=== PATIENT | female | born 1980 | race Caucasian/White ===

== ENCOUNTER 2017-05-20 13:22 | Emergency (ER) | payer MEDICAID ==
[~2017-05-20] VITALS: Ht 154.9 cm; Wt 61.3 kg
[~2017-05-20 13:22] MED LIST: CLIN-79 PO; DICL100G15 TOP; GUAI120015 PO; IBUP-1574 PO; IBUP-814 PO; NAPR-56 PO; NO HOME MEDS
[2017-05-20] MEDS ORDERED: ACET-3067 PO (14:21)
[2017-05-20] MEDS ORDERED: acetaminophen w/codeine (60MG) #4 tablet PO ONE (14:55)
[2017-05-20] MEDS ORDERED: acetaminophen w/codeine (30MG) #3 tablet PO ONE (15:05)
[2017-05-20 15:20] VITALS: BP 122/72
== END 2017-05-20 15:10 | disposition home or self-care (01) ==
LOC: ER 13:23
DX: M54.5 Low back pain (principal); G89.29 Other chronic pain; J45.909 Unspecified asthma, uncomplicated; I49.9 Cardiac arrhythmia, unspecified; Z56.0 Unemployment, unspecified; Z98.890 Other specified postprocedural states; Z88.1 Allergy status to other antibiotic agents; Z88.8 Allergy status to other drugs, medicaments and biological substances; Z79.899 Other long term (current) drug therapy
CPT/HCPCS: 72100; 99284

== ENCOUNTER 2017-06-11 12:09 | Emergency (ER) | payer MEDICAID ==
[~2017-06-11] VITALS: Ht 154.9 cm; Wt 61.0 kg
[2017-06-11 12:12] VITALS: BP 131/59
[2017-06-11] MEDS ORDERED: HYDROcodone/acetaminophen 5mg/325mg tablet PO ONE (13:00)
[2017-06-11] MEDS ORDERED: orphenadrine citrate 60mg/2ml inj. IM ONE (13:00)
[2017-06-11] MEDS ORDERED: acetaminophen 325mg tablet PO ONE (13:00)
[2017-06-11] MEDS ORDERED: ketorolac trometh inj. 60 MG/2 ML VIAL IM ONE (13:00)
[2017-06-11] MEDS ORDERED: CYCL-1 PO (13:35)
== END 2017-06-11 13:48 | disposition home or self-care (01) ==
LOC: ER 12:09
DX: S39.012A Strain of muscle, fascia and tendon of lower back, initial encounter (principal); S16.1XXA Strain of muscle, fascia and tendon at neck level, initial encounter; F17.210 Nicotine dependence, cigarettes, uncomplicated; Z88.1 Allergy status to other antibiotic agents; Z88.8 Allergy status to other drugs, medicaments and biological substances; X50.0XXA Overexertion from strenuous movement or load, initial encounter; Y93.89 Activity, other specified; Y92.89 Other specified places as the place of occurrence of the external cause; Y99.8 Other external cause status
CPT/HCPCS: 96372; 99284; J1885; J2360

== ENCOUNTER 2017-07-06 07:09 | Emergency (ER) | payer MEDICAID ==
[~2017-07-06] VITALS: Ht 154.9 cm; Wt 60.4 kg
[~2017-07-06 07:09] MED LIST changes: +CYCL-1 PO
[2017-07-06 07:57] LABS: CLARITY,URINE SLIGHTLY CLOUDY (Clear); COLOR,URINE YELLOW (Yellow); GLUCOSE, URINE NEGATIVE (Neg); KETONES,URINE NEGATIVE (Neg); LEUKOCYTE ESTERASE ,URINE NEGATIVE (Neg); NITRITES, URINE NEGATIVE (Neg); OCCULT BLOOD,URINE NEGATIVE (Neg); PH,URINE 7.5 (4.8-8.0); PROTEIN,URINE NEGATIVE (Neg); UROBILINOGEN,URINE 0.2 E.U/dL (0.2-1.0)
[2017-07-06 07:58] LABS: UA COLLECTION TYPE CLN CATCH MIDSTREAM
[2017-07-06 07:59] LABS: URINE HCG NEGATIVE (NEG)
[2017-07-06 08:08] LABS: BACTERIA,URINE 1+ /HPF (Neg); MUCUS STRANDS MODERATE /LPF (Neg); RBC,URINE 0-2 /HPF (0-2); SQUAMOUS EPITHELIAL CELL,UR MANY /LPF (FEW); WBC,URINE 0-4 /HPF (0-4)
[2017-07-06 08:18] LABS: BASOPHILS % (AUTO) 0.2 % (0-1); EOSINOPHILS % (AUTO) 0.3 % (0-6); HEMATOCRIT 37.6 % (35.0-45.0); HEMOGLOBIN 12.8 g/dl (12.0-16.0); LYMPHOCYTES # (AUTO) 0.6 X10'3 (1.1-4.8); LYMPHOCYTES % (AUTO) 9.2 % (21-51); MEAN CORPUSCULAR HEMOGLOBIN 28.9 PG (27.0-31.0); MEAN CORPUSCULAR HGB CONC 34.1 % (33.0-36.5); MEAN CORPUSCULAR VOLUME 84.8 FL (78-98); MEAN PLATELET VOLUME 10.6 FL (7.4-10.4); MONOCYTES # (AUTO) 0.2 X10'3 (0-0.9); MONOCYTES % (AUTO) 3.4 % (2-12); NEUTROPHILS # (AUTO) 5.9 X10'3 (1.8-7.7); NEUTROPHILS % (AUTO) 86.9 % (42-75); PLATELET COUNT 180 X10'3 (140-440); RED BLOOD COUNT 4.43 X10'6 (4.20-5.60); RED CELL DISTRIBUTION WIDTH 16.3 % (11.5-14.5); WHITE BLOOD COUNT 6.8 X10'3 (4.5-11.0)
[2017-07-06 08:34] LABS: ALANINE AMINOTRANSFERASE 21 U/L (12-78); ALBUMIN 3.5 G/DL (3.4-5.0); ALKALINE PHOSPHATASE 66 IU/L (46-116); ANION GAP 11 (8-16); ASPARTATE AMINO TRANSFERASE 17 U/L (10-37); BILIRUBIN,TOTAL 0.7 MG/DL (0.1-1.0); BLOOD UREA NITROGEN 20 MG/DL (7-18); BUN/CREATININE RATIO 28.6 (6.6-38.0); CALCIUM 8.1 MG/DL (8.5-10.1); CHLORIDE 106 MMOL/L (99-107); GLUCOSE 94 MG/DL (70-104); LIPASE 165 U/L (73-393); POTASSIUM 3.7 MMOL/L (3.5-5.1); SODIUM 140 MMOL/L (135-145); TOTAL CARBON DIOXIDE 23.1 MMOL/L (24-32); TOTAL PROTEIN 6.9 G/DL (6.4-8.2); eGFR > 90 ML/MIN
[2017-07-06 08:36] LABS: LARGE PLATELETS FEW; PLATELET ESTIMATE NORMAL
[2017-07-06] MEDS ORDERED: ketorolac trometh. 30mg/ml inj. IV ONE (08:50)
[2017-07-06] MEDS ORDERED: normal saline 1000ML IV soln IVB ONE (08:50)
[2017-07-06] MEDS ORDERED: famotidine/PF 10 mg/ml inj IV ONE (08:50)
[2017-07-06] MEDS ORDERED: ondansetron/PF 4mg/2ml inj IV ONE (08:50)
[2017-07-06 10:06] VITALS: BP 129/75
== END 2017-07-06 10:10 | disposition home or self-care (01) ==
LOC: ER 07:09
DX: R10.12 Left upper quadrant pain (principal); R19.7 Diarrhea, unspecified; R11.10 Vomiting, unspecified; G89.29 Other chronic pain; J45.909 Unspecified asthma, uncomplicated; Z88.1 Allergy status to other antibiotic agents; Z88.8 Allergy status to other drugs, medicaments and biological substances; Z98.890 Other specified postprocedural states; Z90.89 Acquired absence of other organs; Z56.0 Unemployment, unspecified
CPT/HCPCS: 36415; 80053; 81001; 81025; 83690; 85025; 96374; 96375; 99284; J1885; J2405; J3490; J7030

== ENCOUNTER 2017-07-24 11:59 | Emergency (ER) | payer MEDICAID ==
[~2017-07-24] VITALS: Ht 154.9 cm; Wt 61.5 kg
[2017-07-24] MEDS ORDERED: [UNRECOGNIZED DRUG - OTHER] (12:54)
[2017-07-24] MEDS ORDERED: BUSP5TAB3 PO (12:55)
[2017-07-24] MEDS ORDERED: IBUP-1984 PO (13:04)
[2017-07-24] MEDS: ketorolac trometh inj. 60 MG/2 ML VIAL IM ONE (13:10)
[2017-07-24 13:22] VITALS: BP 126/84
== END 2017-07-24 13:24 | disposition home or self-care (01) ==
LOC: ER 12:00
DX: M54.5 Low back pain (principal); G89.29 Other chronic pain; J45.909 Unspecified asthma, uncomplicated; I49.9 Cardiac arrhythmia, unspecified; Z98.890 Other specified postprocedural states; Z56.0 Unemployment, unspecified; Z88.1 Allergy status to other antibiotic agents; Z88.8 Allergy status to other drugs, medicaments and biological substances; Z79.899 Other long term (current) drug therapy
CPT/HCPCS: 96372; 99283; J1885

== ENCOUNTER 2017-08-22 11:41 | Emergency (ER) | payer MEDICAID ==
[~2017-08-22] VITALS: Ht 154.9 cm; Wt 61.0 kg
[~2017-08-22 11:41] MED LIST changes: +BUSP5TAB3 PO; -CLIN-79 PO; -CYCL-1 PO; -DICL100G15 TOP; -GUAI120015 PO; -IBUP-1574 PO; +IBUP-1984 PO; -NAPR-56 PO; -NO HOME MEDS; +[UNRECOGNIZED DRUG - OTHER]
[2017-08-22 11:57] VITALS: BP 114/77
[2017-08-22] MEDS ORDERED: HYDROcodone/acetaminophen 5mg/325mg tablet PO ONE (12:25)
[2017-08-22] MEDS ORDERED: HYDR-565 PO (12:30)
[2017-08-22] MEDS ORDERED: PENI500T2 PO (12:30)
== END 2017-08-22 12:46 | disposition home or self-care (01) ==
LOC: ER 11:42
DX: K04.7 Periapical abscess without sinus (principal); J45.909 Unspecified asthma, uncomplicated; G89.29 Other chronic pain; Z98.890 Other specified postprocedural states; Z56.0 Unemployment, unspecified; Z88.8 Allergy status to other drugs, medicaments and biological substances; Z79.899 Other long term (current) drug therapy
CPT/HCPCS: 99283

== ENCOUNTER 2017-09-27 06:33 | Emergency (ER) | payer MEDICAID ==
[~2017-09-27] VITALS: Ht 154.9 cm; Wt 62.1 kg
[~2017-09-27 06:33] MED LIST changes: -IBUP-1984 PO; +PENI500T2 PO
[2017-09-27 06:35] VITALS: BP 112/72
[2017-09-27] MEDS ORDERED: ketorolac trometh inj. 60 MG/2 ML VIAL IM ONE (06:55)
[2017-09-27] MEDS ORDERED: LIDOcaine 5% patch TP ONE (06:55)
[2017-09-27] MEDS ORDERED: acetaminophen 325mg tablet PO ONE (06:55)
[2017-09-27 07:13] LABS: URINE HCG NEGATIVE (NEG)
[2017-09-27 07:18] LABS: CLARITY,URINE CLOUDY (Clear); COLOR,URINE YELLOW (Yellow); GLUCOSE, URINE NEGATIVE (Neg); KETONES,URINE NEGATIVE (Neg); LEUKOCYTE ESTERASE ,URINE TRACE (Neg); NITRITES, URINE NEGATIVE (Neg); OCCULT BLOOD,URINE NEGATIVE (Neg); PH,URINE 5.5 (4.8-8.0); PROTEIN,URINE NEGATIVE (Neg); UROBILINOGEN,URINE 0.2 E.U/dL (0.2-1.0)
[2017-09-27 07:25] LABS: UA COLLECTION TYPE CLN CATCH MIDSTREAM
[2017-09-27 07:28] LABS: BACTERIA,URINE 1+ /HPF (Neg); MUCUS STRANDS FEW /LPF (Neg); RBC,URINE NONE SEEN /HPF (0-2)
[2017-09-27 07:30] LABS: SQUAMOUS EPITHELIAL CELL,UR MANY /LPF (FEW)
[2017-09-27] MEDS ORDERED: LIDO700A32 TP (07:38)
[2017-09-27 07:47] LABS: URINE AMPHETAMINE SCREEN NEGATIVE (Neg); URINE BARBITUATE SCREEN NEGATIVE (Neg); URINE BENZODIAZEPINES SCREEN NEGATIVE (Neg); URINE CANNABINOID SCREEN NEGATIVE (Neg); URINE COCAINE SCREEN NEGATIVE (Neg); URINE METHADONE SCREEN NEGATIVE (Neg); URINE OPIATE SCREEN NEGATIVE (Neg); URINE PHENCYCLIDINE SCREEN NEGATIVE (Neg)
== END 2017-09-27 07:49 | disposition home or self-care (01) ==
LOC: ER 06:33
DX: M54.9 Dorsalgia, unspecified (principal); I49.9 Cardiac arrhythmia, unspecified; J45.909 Unspecified asthma, uncomplicated; G89.29 Other chronic pain; F17.200 Nicotine dependence, unspecified, uncomplicated; Z98.890 Other specified postprocedural states; Z56.0 Unemployment, unspecified; Z88.1 Allergy status to other antibiotic agents; Z88.6 Allergy status to analgesic agent; Z79.899 Other long term (current) drug therapy
CPT/HCPCS: 80305; 81001; 81025; 96372; 99284; J1885

== ENCOUNTER 2017-11-18 17:48 | Emergency (ER) | payer MEDICAID ==
[~2017-11-18] VITALS: Ht 154.9 cm; Wt 63.2 kg
[~2017-11-18 17:48] MED LIST changes: +LIDO700A32 TP; -PENI500T2 PO
[2017-11-18 17:58] VITALS: BP 134/89
[2017-11-18] MEDS ORDERED: ibuprofen tablet 400 MG TABLET PO ONE (18:00)
[2017-11-18] MEDS ORDERED: CEPH500C5 PO (18:03)
[2017-11-18] MEDS ORDERED: IBUP-1984 PO (18:03)
== END 2017-11-18 18:13 | disposition home or self-care (01) ==
LOC: ER 17:48
DX: K08.89 Other specified disorders of teeth and supporting structures (principal); J45.909 Unspecified asthma, uncomplicated; G89.29 Other chronic pain; Z56.0 Unemployment, unspecified; Z98.890 Other specified postprocedural states; Z90.89 Acquired absence of other organs; Z79.899 Other long term (current) drug therapy; Z88.1 Allergy status to other antibiotic agents
CPT/HCPCS: 99283

== ENCOUNTER 2017-12-27 11:17 | Emergency (ER) | payer MEDICAID ==
[~2017-12-27] VITALS: Ht 154.9 cm; Wt 63.6 kg
[~2017-12-27 11:17] MED LIST changes: +CEPH500C5 PO
[2017-12-27 11:51] LABS: BASOPHILS % (AUTO) 0.2 % (0-1); EOSINOPHILS % (AUTO) 0.4 % (0-6); HEMOGLOBIN 12.1 g/dl (12.0-16.0); LYMPHOCYTES # (AUTO) 0.9 X10'3 (1.1-4.8); LYMPHOCYTES % (AUTO) 8.7 % (21-51); MEAN CORPUSCULAR HEMOGLOBIN 29.1 PG (27.0-31.0); MEAN CORPUSCULAR HGB CONC 33.6 % (33.0-36.5); MEAN CORPUSCULAR VOLUME 86.4 FL (78-98); MONOCYTES # (AUTO) 0.4 X10'3 (0-0.9); MONOCYTES % (AUTO) 3.9 % (2-12); NEUTROPHILS # (AUTO) 8.6 X10'3 (1.8-7.7); NEUTROPHILS % (AUTO) 86.8 % (42-75); PLATELET COUNT 169 X10'3 (140-440); RED BLOOD COUNT 4.17 X10'6 (4.20-5.60); RED CELL DISTRIBUTION WIDTH 15.5 % (11.5-14.5); WHITE BLOOD COUNT 9.9 X10'3 (4.5-11.0)
[2017-12-27 11:55] LABS: URINE HCG NEGATIVE (NEG)
[2017-12-27 11:58] LABS: CLARITY,URINE CLOUDY (Clear); COLOR,URINE YELLOW (Yellow); GLUCOSE, URINE NEGATIVE (Neg); KETONES,URINE NEGATIVE (Neg); LEUKOCYTE ESTERASE ,URINE MODERATE (Neg); NITRITES, URINE POSITIVE (Neg); OCCULT BLOOD,URINE LARGE (Neg); PH,URINE 5.5 (4.8-8.0); PROTEIN,URINE 30 mg/dl (Neg); UA COLLECTION TYPE CLN CATCH MIDSTREAM; UROBILINOGEN,URINE 0.2 E.U/dL (0.2-1.0)
[2017-12-27 12:08] LABS: ALANINE AMINOTRANSFERASE 20 U/L (12-78); ALBUMIN 3.3 G/DL (3.4-5.0); ALBUMIN/GLOBULIN RATIO 0.9 (1.1-1.5); ALKALINE PHOSPHATASE 88 IU/L (46-116); ANION GAP 12 (8-16); ASPARTATE AMINO TRANSFERASE 19 U/L (10-37); BILIRUBIN,TOTAL 0.8 MG/DL (0.1-1.0); BLOOD UREA NITROGEN 14 MG/DL (7-18); BUN/CREATININE RATIO 15.6 (6.6-38.0); CALCIUM 9.5 MG/DL (8.5-10.1); CHLORIDE 104 MMOL/L (99-107); GLUCOSE 166 MG/DL (70-104); LIPASE 948 U/L (73-393); POTASSIUM 3.3 MMOL/L (3.5-5.1); SODIUM 138 MMOL/L (135-145); TOTAL CARBON DIOXIDE 21.9 MMOL/L (24-32); TOTAL PROTEIN 6.8 G/DL (6.4-8.2); eGFR 70 ML/MIN
[2017-12-27 12:18] LABS: BACTERIA,URINE 1+ /HPF (Neg); MUCUS STRANDS FEW /LPF (Neg); SQUAMOUS EPITHELIAL CELL,UR MANY /LPF (FEW); WBC CLUMPS,URINE FEW /HPF (NEGATIVE); WBC,URINE TNTC /HPF (0-4)
[2017-12-27] MEDS ORDERED: CefTRIAXone/D5W-Rocephin 1gm 50 ML IV ONE (12:35)
[2017-12-27] MEDS ORDERED: ketorolac tromethamine 15mg/ml inj. IV ONE (12:35)
[2017-12-27] MEDS ORDERED: CEPH500C5 PO (12:42)
[2017-12-27 13:41] VITALS: BP 110/64
== END 2017-12-27 13:43 | disposition home or self-care (01) ==
LOC: ER 11:18
DX: N10 Acute pyelonephritis (principal); G89.29 Other chronic pain; J45.909 Unspecified asthma, uncomplicated; F17.200 Nicotine dependence, unspecified, uncomplicated; Z88.1 Allergy status to other antibiotic agents; Z88.8 Allergy status to other drugs, medicaments and biological substances; Z79.899 Other long term (current) drug therapy; Z90.89 Acquired absence of other organs; Z98.890 Other specified postprocedural states; Z56.0 Unemployment, unspecified
CPT/HCPCS: 36415; 80053; 81001; 81025; 83690; 85025; 85610; 96365; 96375; 99284; J0696; J1885; J7030

== ENCOUNTER 2018-05-27 10:15 | Emergency (ER) | payer MEDICAID ==
[~2018-05-27] VITALS: Ht 154.9 cm; Wt 63.6 kg
[~2018-05-27 10:15] MED LIST changes: -IBUP-814 PO; -LIDO700A32 TP; -[UNRECOGNIZED DRUG - OTHER]
[2018-05-27 10:25] VITALS: BP 113/72
[2018-05-27] MEDS ORDERED: PENI500T2 PO (10:52)
[2018-05-27] MEDS ORDERED: ACET-3068 PO (10:52)
== END 2018-05-27 11:00 | disposition home or self-care (01) ==
LOC: ER 10:16
DX: K04.7 Periapical abscess without sinus (principal); J45.909 Unspecified asthma, uncomplicated; G89.29 Other chronic pain; F17.200 Nicotine dependence, unspecified, uncomplicated; Z98.890 Other specified postprocedural states; Z56.0 Unemployment, unspecified; Z88.1 Allergy status to other antibiotic agents; Z91.041 Radiographic dye allergy status; Z79.2 Long term (current) use of antibiotics; Z79.899 Other long term (current) drug therapy
CPT/HCPCS: 99283

== ENCOUNTER 2020-05-26 09:50 | Emergency (ER) | payer MEDICAID ==
[~2020-05-26] VITALS: Ht 154.9 cm; Wt 55.2 kg
[~2020-05-26 09:50] MED LIST changes: -CEPH500C5 PO
[2020-05-26 10:32] VITALS: BP 108/60
[2020-05-26] MEDS ORDERED: ketorolac tromethamine 15mg/ml inj. IM ONE (11:05)
[2020-05-26] MEDS ORDERED: ketorolac trometh. 30mg/ml inj. IM ONE (11:10)
== END 2020-05-26 10:55 | disposition home or self-care (01) ==
LOC: ER 09:52
DX: M25.562 Pain in left knee (principal); M25.462 Effusion, left knee; J45.909 Unspecified asthma, uncomplicated; G89.29 Other chronic pain; Z98.890 Other specified postprocedural states; Z90.89 Acquired absence of other organs; Z72.89 Other problems related to lifestyle; Z56.0 Unemployment, unspecified; Z88.1 Allergy status to other antibiotic agents; Z88.8 Allergy status to other drugs, medicaments and biological substances; Z79.899 Other long term (current) drug therapy
CPT/HCPCS: 73564; 96372; 99283; J1885

== ENCOUNTER 2020-12-22 13:09 | Emergency (ER) | payer MEDICAID ==
[~2020-12-22] VITALS: Ht 154.9 cm; Wt 50.0 kg
[2020-12-22 13:37] VITALS: BP 100/73
== END 2020-12-22 20:25 | disposition left against medical advice (07) ==
LOC: ER 13:10
DX: K08.89 Other specified disorders of teeth and supporting structures (principal); Z53.21 Procedure and treatment not carried out due to patient leaving prior to being seen by health care provider

== ENCOUNTER 2021-02-15 16:08 | Emergency (ER) | payer MEDICAID ==
[~2021-02-15] VITALS: Ht 154.9 cm; Wt 50.0 kg
[2021-02-15 16:11] VITALS: BP 140/89
[2021-02-15] MEDS ORDERED: PENI250T2 PO (16:16)
[2021-02-15] MEDS ORDERED: NAPR-56 PO (16:16)
== END 2021-02-15 17:19 | disposition home or self-care (01) ==
LOC: ER 16:08
DX: K04.7 Periapical abscess without sinus (principal); K08.89 Other specified disorders of teeth and supporting structures; J45.909 Unspecified asthma, uncomplicated; G89.29 Other chronic pain; Z98.890 Other specified postprocedural states; Z90.89 Acquired absence of other organs; Z72.89 Other problems related to lifestyle; Z56.0 Unemployment, unspecified; Z88.1 Allergy status to other antibiotic agents; Z88.8 Allergy status to other drugs, medicaments and biological substances; Z79.2 Long term (current) use of antibiotics; Z79.899 Other long term (current) drug therapy
CPT/HCPCS: 99283

== ENCOUNTER 2021-03-10 11:48 | Emergency (ER) | payer MEDICAID ==
[~2021-03-10] VITALS: Ht 154.9 cm; Wt 50.0 kg
[~2021-03-10 11:48] MED LIST changes: +NAPR-56 PO
[2021-03-10 12:21] VITALS: BP 122/67
[2021-03-10] MEDS ORDERED: HYDR-3972 PO (13:25)
== END 2021-03-10 13:50 | disposition home or self-care (01) ==
LOC: ER 11:49
DX: K02.9 Dental caries, unspecified (principal); K08.89 Other specified disorders of teeth and supporting structures; R11.10 Vomiting, unspecified; J45.909 Unspecified asthma, uncomplicated; G89.29 Other chronic pain; Z98.890 Other specified postprocedural states; Z90.89 Acquired absence of other organs; Z72.89 Other problems related to lifestyle; Z56.0 Unemployment, unspecified; Z88.1 Allergy status to other antibiotic agents; Z88.8 Allergy status to other drugs, medicaments and biological substances; Z79.899 Other long term (current) drug therapy
CPT/HCPCS: 99283

== ENCOUNTER 2025-01-05 09:18 | Emergency (ER) | payer MEDICAID ==
[~2025-01-05] VITALS: Ht 154.9 cm; Wt 54.0 kg
[~2025-01-05 09:18] MED LIST changes: -NAPR-56 PO
[2025-01-05 09:22] VITALS: BP 152/97; PULSE 77; RESP 18; TEMP 97.5; O2SAT 99
--- NOTE | 2025-01-05 09:40 | Physician Documentation ---
History of Present Illness ~ Chief Complaint: Medical Clearance Stated Complaint: MED CLEARANCE Time Seen by MD: 09:36 Primary Medical Doctor: Deyanira [facility] HPI 44-year-old female presents to the ED with a complaint of alcohol abuse. He is she would like to go to [facility] for recovery. States her last drink was yesterday. Has a she has never had any severe withdrawals or seizures Tetanus within 5 years?: Yes Medication Reconciliation Allergies: Coded Allergies: erythromycin base (Verified Allergy, Intermediate, 01/05/25) iodine (Verified Allergy, Unknown, 01/05/25) Uncoded Allergies: SHELLFISH (Allergy, Severe, anaphylactic, 04/24/16) Scheduled Buspirone Hcl* (Buspar*), 3 TAB PO Q12H, (Reported) Past Medical History Past Medical History: Arrhythmia, Asthma, Pancreatitis, Chronic Back Pain, Extremity Fracture, *PSYCH* Past Surgical History: , orthopedic surgeries, tonsillectomy, other Alcohol Use: Sober Drug Use: none Lives with: Other Lives In: Home Occupation: unemployed, disabled Review of Systems All Other Systems at this time: Reviewed and Negative ROS As stated above in the HPI, otherwise all systems are reviewed and negative. Physical Exam Vital Signs: Temperature: 97.5, Source: Temporal, Heart Rate: 77, Respiratory Rate: 18, BP: 152/97, Pulse Oximetry: 99, Weight: 54.000 Oxygen Flow Rate: 0 Physical Exam General: Alert, no apparent distress. Respiratory: Lungs clear, no respiratory distress. Cardiovascular: Regular rate and rhythm, no murmurs. Neurologic: Oriented x4. Psychiatric: Normal mood and affect. Skin: Normal color, warm and dry. No edema, no ecchymosis. Progress Results/Orders Results/Orders Vital Signs 01/05/25 09:22 Temp 97.5 Pulse 77 Resp 18 B/P (MAP) 152/97 Pulse Ox 99 O2 Flow Rate 0 Medical Decision Making Findings Medically cleared for alcohol recovery. See any reason to pursue any further evaluation vitals are reassuring and patient's presentation is appropriate Differential Dx:Considerations: Include: Intoxication-Alcohol, Intoxication- Other drug, Personality disorder, Substance abuse disorder, Acute delirium, Closed head injury, Cervical spine injury, Skull fracture, Fracture(s), Ab rasion, Contusion, Foreign body, Hematoma, Laceration, Alcohol withdrawl syndrom, Encephalopathy, Hepatitis, Medically stable, Other Departure Disposition: HOME / SELF CARE / HOMELESS Impression: Primary Impression: General medical exam Condition: Stable Discharge Instructions: Medical Screening Exam Additional Instructions: Medically cleared cleared for alcohol recovery program Referrals: NO PRIMARY CARE PROVIDER (PCP) Prescriptions Chlordiazepoxide Hcl (Librium) 25 Mg Capsule 25 MG PO TID for alcohol withdrawl for 5 Days, #15 CAP 0 Refills Prov: FLAVIO SOLANO NP 01/05/25 Education Educated: Patient Educated regarding: diagnosis Signature Scribe Signature: g Attestation: Scribed for Flavio Solano Rare/Endangered Species Specialist by Flavio Justice NP . 01/05/25 09:53 FLAVIO SOLANO NP Jan 05, 2025 09:40
[2025-01-05] MEDS ORDERED: CHLO25CA10 PO (09:52)
== END 2025-01-05 10:09 | disposition home or self-care (01) ==
LOC: ER 09:18
DX: F10.10 Alcohol abuse, uncomplicated (principal); J45.909 Unspecified asthma, uncomplicated; G89.29 Other chronic pain; Z88.1 Allergy status to other antibiotic agents; Z87.19 Personal history of other diseases of the digestive system; Z79.899 Other long term (current) drug therapy; Z56.0 Unemployment, unspecified
CPT/HCPCS: 99283

== ENCOUNTER 2025-04-08 07:39 | Emergency (ER) | payer MEDICAID ==
[~2025-04-08] VITALS: Ht 154.9 cm; Wt 56.3 kg
[~2025-04-08 07:39] MED LIST changes: +CHLO25CA10 PO
[2025-04-08 07:43] VITALS: TEMP 98.4
--- NOTE | 2025-04-08 08:28 | ELECTROCARDIOGRAPH REPORT ---
[facility] Test Date: 2025-04-08 Test Time: 08:25:42 Pat Name: KHALIF ZURITA Department: [facility]- Patient ID: [facility]-[id number] Room: Gender: F Food Service Counter Clerk: : 1980 Requested By: ARMANDO BACH Order Number: [id number] Reading MD: Dr. ALBIN Ahumada Measurements Intervals [place] Rate: 70 P: 75 MA: 150 QRS: 71 QRSD: 84 T: 51 QT: 407 QTc: 440 Interpretive Statements Sinus rhythm Probable left atrial enlargement Low voltage, precordial leads RSR' in V1 or V2, probably normal variant Electronically Signed On 04-09-2025 16:52:[address] ALBIN Ahumada Please click the below link to view image of tracing.
--- NOTE | 2025-04-08 08:28 | Physician Documentation ---
History of Present Illness General Chief Complaint: Flu Symptoms Stated Complaint: FLU SYMPTOMS Time Seen by MD: 07:58 [facility] Present [facility]ness Initial Comments This is a 45-year-old female with a history of ongoing smoking, known history of COPD, presents for evaluation of shortness a breath, wheezing, cough productive with a yellow sputum, subjective fevers, chills, body aches and other flu-like symptoms that has been present for the last three days. No known infectious exposure. No particular palliating or aggravating factors. The shortness a breath does not feel exertional. She has a attempted to treat it with the albuterol at home with the only moderate success. She finally had enough and presented to our emergency department. She denies any chest pain. Denies any nausea, vomiting, diarrhea, abdominal pain. Denies any chance of being . She does not drink, does not do drugs. Medication Reconciliation Allergies: Coded Allergies: erythromycin base (Verified Allergy, Intermediate, 04/08/25) iodine (Verified Allergy, Unknown, 04/08/25) Uncoded Allergies: SHELLFISH (Allergy, Severe, anaphylactic, 04/24/16) Scheduled Benzonatate* (Benzonatate*), 1 CAP PO Q8H Buspirone Hcl* (Buspar*), 3 TAB PO Q12H, (Reported) Chlordiazepoxide Hcl (Librium), 25 MG PO TID Prednisone (Prednisone), 0 PO DAILY Past Medical History Past Medical History: Arrhythmia, Asthma, Pancreatitis, Chronic Back Pain, Extremity Fracture, *PSYCH* Past Surgical History: , orthopedic surgeries, tonsillectomy, other Smoking: Cigarettes, Greater than 1 pack/day Alcohol Use: Sober Drug Use: none Lives with: Other Lives In: Home Occupation: unemployed, disabled Review of Systems ROS 10 point review of systems was performed and unless noted above in HPI is negative for acute process/complaint. Physical Exam Physical Exam Vital Signs: Temperature: 98.4, Source: Oral, Heart Rate: 89, Respiratory Rate: 18, BP: 109/35, Pulse Oximetry: 98, Weight: 56.300 Oxygen Flow Rate: 0 Physical Exam GENERAL: Awake, alert, oriented, GCS 15, no apparent distress, non-toxic appearing, answers questions, follows commands appropriately. Examined in bed 12 HEENT: Atraumatic, normocephalic, pupils equal, extraocular muscles intact, sclerae anicteric, mucus membranes moist, oropharynx is clear, no stridor. NECK: supple, full active range of motion, trachea midline, no thyromegaly, no lymphadenopathy, no JVD. CARDIOVASCULAR: regular rate/rhythm, no murmurs/gallops/rubs, Pulses are 2+ in all extremities and symmetric. Capillary refill less than 2 seconds. PULMONARY: Nonlabored, slightly decreased air movement ,no respiratory distress, speaking in full sentences, bilateral expiratory wheezing, no ronchi, no rales, no accessory muscle use. GASTROINTESTINAL: Soft, non-tender, non-distended, normal active bowel sounds, no organomegaly, no pulsatile masses, no CVA tenderness. NEUROLOGIC: Lucid with normal mental status. Normal facial symmetry. Moves all extremities symmetrically and with purpose. No truncal ataxia. Speech is fluid without evidence of dysarthria or aphasia, no focal deficits appreciated. MUSCULOSKELETAL: There is full range of motion of all extremities. There is no joint pain or joint swelling or joint erythema. There is no muscle pain or tenderness or swelling. EXTREMITIES: warm, well-perfused, no cyanosis, no clubbing, no edema, no acute deformities. Skin: warm, dry, no rashes or lesions, no jaundice, no petechiae orpurpura. No ecchymosis. PSYCHIATRIC: Normal affect, normal insight, normal concentration. Focused exam: [] Progress Results/Orders Results/Orders Orders - ARMANDO BACH DO Covid19 Binax Poc Result Entry (04/08/25 07:49) Chest,Two Views (04/08/25 08:16) * Rt Notification Q1H (04/08/25 10:18) Completed Orders - ARMANDO BACH DO Influenza Type A&B Rapid Test (04/08/25 07:49) Chest,Two Views (04/08/25 08:16) Electrocardiogram (04/08/25 08:16) Cbc/Diff (04/08/25 08:16) ESR (04/08/25 08:16) C-Reactive Protein (04/08/25 08:16) Hs Troponin I W Calculations (04/08/25 08:16) CMP (04/08/25 08:16) Ipratropium/Albuterol Nebule (Ipratrop/A (04/08/25 08:20) Prednisone Tablet (Prednisone Tablet) (04/08/25 08:20) Albuterol 2.5mg/3ml Nebule (Proventil 2. (04/08/25 10:20) Medications Received in ER Medications (Trade) Dose Ordered Sig/Kj Route PRN Reason Start Time Stop Time Status Last Admin Dose Admin (ipratrop/ albuterol 0.5-3(2.5) MG/3ml nebule) 3 ml ONCE ONCE NEB 04/08/25 08:20 04/08/25 08:25 DC 04/08/25 09:42 3 ML (predniSONE tablet) 60 mg ONCE ONCE PO 04/08/25 08:20 04/08/25 08:23 DC 04/08/25 08:28 60 MG Vital Signs 04/08/25 04/08/25 04/08/25 04/08/25 07:43 08:52 09:44 09:44 Temp 98.4 Pulse 89 74 70 Resp 18 16 18 20 B/P (MAP) 109/35 Pulse Ox 98 100 100 O2 Delivery Room Air* Room Air* O2 Flow Rate 0 0 0 FiO2 N/A N/A 04/08/25 11:10 Pulse 94 Resp 18 B/P (MAP) 109/47 (67) Pulse Ox 98 O2 Flow Rate 0 Laboratory Tests Test 04/08/25 07:47 04/08/25 08:39 Influenza Type A Antigen Negative Influenza Type B Antigen Negative SARS-CoV-2 Antigen (Rapid) Negative White Blood Count 5.7 Red Blood Count 4.20 Hemoglobin 13.2 Hematocrit 39.7 Mean Corpuscular Volume 94.6 Mean Corpuscular Hemoglobin 31.5 H Mean Corpuscular Hemoglobin Concent 33.3 Red Cell Distribution Width 13.1 Platelet Count 139 L Mean Platelet Volume 10.1 Neutrophils (%) (Auto) 68.3 Lymphocytes (%) (Auto) 21.0 Monocytes (%) (Auto) 9.5 Eosinophils (%) (Auto) 1.0 Basophils (%) (Auto) 0.2 Neutrophils # (Auto) 3.9 Lymphocytes # (Auto) 1.2 Monocytes # (Auto) 0.5 Eosinophils # (Auto) 0.1 Basophils # (Auto) 0.0 CBC Comment Erythrocyte Sedimentation Rate 4 Sodium Level 141 Potassium Level 3.8 Chloride Level 107 Carbon Dioxide Level 26.5 Anion Gap 8 Blood Urea Nitrogen 14 Creatinine 0.59 Estimated GFR/1.73 m2 > 90 BUN/Creatinine Ratio 23.7 H Glucose Level 109 H Calcium Level 8.1 L Total Bilirubin 0.3 Aspartate Amino Transf (AST/SGOT) 18 Alanine Aminotransferase (ALT/SGPT) 15 Alkaline Phosphatase 77 Troponin I High Sensitivity 4 C-Reactive Protein 0.81 H Total Protein 7.0 Albumin 3.7 Globulin 3.3 Albumin/Globulin Ratio 1.1 Chemistry Comments Medical Decision Making Additional information obtaine: old records Findings Facility Status: ED Holds, RME process The plan was discussed with the patient, who demonstrates clear understanding of the plan and is in agreement with the plan unless otherwise noted in the chart. All questions have been answered, all concerns were addressed unless otherwise documented. I was available throughout their ED stay for frequent reassessment and questions. Differential Diagnoses (considered and possible or likely): [COVID, influenza, RSV, upper respiratory infection in the top of the viruses, bacterial pneumonia, COPD exacerbation. Significantly less likely ACS. Unlikely to be CHF. Low risk for PE.] ??Differential Diagnoses (considered and unlikely, not requiring evaluation currently): [Unlikely to represent spontaneous or traumatic pneumothorax] MDM Data Please see HPI for the following: Independent Historians and external Records Review. Historian: [Patient] Independent Historians: ?[Record review] Medication Management: [Reviewed medication list] Social History and determinants: [Reviewed] Please see the body of the note for the following: Any independent interpretations of ECG, imaging studies. All vitals signs/haemodynamics, ordered tests were independently reviewed and interpreted by myself. Nursing triage complaint and vitals reviewed, additional nursing notes were reviewed as available and I agree unless otherwise noted or documented in contradiction in the chart Vital Signs: Independently reviewed Labs: Independently interpreted Imaging: Independently interpreted Old Medical Records: Independently reviewed, see HPI for relevant summary and information Pulse Oximetry: [97%] interpreted as [normal on room air] by me [Supervisor Lathing: [Regular Rate, Regular rhythm, no ectopy, NSR] reviewed and interpreted by me] Additionally notably showing: [Hemodynamics reviewed. The patient isn't febrile, not tachycardic, no evidence of hypotension respiratory distress. CBC normal, there is no neutrophilic predominance. Minimally decreased platelets. Borderline macrocytosis noted. Chemistry notable for dehydration. CRP is slightly elevated. COVID and influenza negative. Chest x-ray is unremarkable on my independent interpretation it shows midline trachea, normal cardiac silhouette, grossly normal bony structures, no focal infiltrates.] Tests considered but not ordered include: [Advanced imaging has been considerably does not appear to be necessary] Social Determinants of Health Impact: Patient was evaluated in [facility] [place] access to healthcare due to below par ratio of patient to medical providers. [] Comorbid Conditions Impacting Present Evaluation and Care/Treatment: [COPD] Management Discussions with other Healthcare Providers: [None] Treatment and Disposition Medication Management (Given or considered): [Breathing treatment and steroids]. See EMR for details Consideration for Hospitalization/Escalation/Deescalation of Care: Admission for observation has been considered, [however the patient is able to tolerate p.o., their symptoms are controlled, they are able to rely on oral medications, and their chief complaint/diagnosis can be managed on outpatient basis.] ?ED Course:?[Patient improved.] I believe patient could not benefit from a 2nd DuoNeb, however she does not want to stay. She requests to be discharged. She will do the procedure at home. ?Shared decision making:?[Patient is hemodynamically stable for discharge home with follow with their primary care provider. [ ] Specific and cautious return precautions provided and discussed with full understanding. Any incidental findings were also discussed and follow up recommendations given. [] All questions answered. Patient/family were able to verbalize back return precautions. Patient/family agree to plan. Copies of imaging and laboratory studies were provided.] Code status:?FULL Please see the full Electronic Medical Record for full details of nursing documentation, medications list, other records of complete past medical history and conditions, vital signs, laboratory studies, and any radiologic study interpretations by radiologists. Portions of this note were completed using [employer] dictation software and as a result there may exist minor errors in spelling. I have reviewed elements of past family and social history and agree as included in note. Differential Diagnosis Please see the body of may note for differential diagnosis Departure Disposition: HOME / SELF CARE / HOMELESS Impression: Primary Impression: COPD exacerbation Additional Impression: Upper respiratory infection Condition: Improved Discharge Instructions: Chronic Obstructive Pulmonary Disease Exacerbation Referrals: NO PRIMARY CARE PROVIDER (PCP) Prescriptions Benzonatate* (Benzonatate*) 100 Mg Capsule 1 CAP PO Q8H for cough for 10 Days, #30 CAP Prov: ARMANDO BACH DO 04/08/25 Prednisone (Prednisone) 10 Mg Tablet 0 PO DAILY, #42 TABLET Take 6 tabs/day x2 days then 5 daily x2 days 4 daily x2 days 3 daily x2 days 2 daily x2 days 1 daily x2 days then stop. Prov: ARMANDO BACH DO 04/08/25 Education Educated: Patient Educated regarding: diagnosis, treatment, prognosis, need for follow up Signature Scribe Signature: No scribe Attestation: Date: Apr 08, 2025 Time: 08:28 This note accurately reflects clinical decisions, work performed by myself, DO MIKALA Mckeon NICHOLAS M DO Apr 08, 2025 08:28
[2025-04-08 08:46] LABS: MEAN PLATELET VOLUME 10.1 FL (7.4-10.4); RED CELL DISTRIBUTION WIDTH 13.1 % (11.5-14.5)
--- NOTE | 2025-04-08 08:49 | RADIOLOGY REPORT ---
CLINICAL INFORMATION: Shortness of breath, cough. TECHNIQUE: Frontal and lateral chest radiographs were obtained. COMPARISON: None FINDINGS: Lungs: Clear. Cardiac: Heart size is within normal limits. Pulmonary vasculature: Unremarkable Mediastinum/pia: Within normal limits. Bones: No evidence of acute osseous abnormality. Other: No other significant finding. IMPRESSION: No evidence of acute disease in the chest.
[2025-04-08 08:58] LABS: INFLUENZA TYPE A ANTIGEN RAPID NEGATIVE (Negative); INFLUENZA TYPE B ANTIGEN RAPID NEGATIVE (Negative)
[2025-04-08 09:01] LABS: CREATININE 0.59 MG/DL (0.40-0.90); TOTAL CARBON DIOXIDE 26.5 MMOL/L (24-32); eCRCL 89 ML/MIN; eGFR > 90 ML/MIN
[2025-04-08] MEDS ORDERED: PRED10TA23 PO (09:12)
[2025-04-08] MEDS ORDERED: BENZ-38 PO (09:12)
[2025-04-08] MEDS: ipratropium/albuterol 3ml nebule NEB ONE (09:42)
[2025-04-08 09:44] VITALS: PULSE 70; PULSE 74; RESP 18; RESP 20; O2SAT 100
[2025-04-08] MEDS: albuterol 2.5 MG/3 ML nebule NEB ONE (11:00)
[2025-04-08 11:44] VITALS: BP 114/79; PULSE 81; RESP 15; O2SAT 96
== END 2025-04-08 11:47 | disposition home or self-care (01) ==
LOC: ER 07:40
DX: J44.1 Chronic obstructive pulmonary disease with (acute) exacerbation (principal); J22 Unspecified acute lower respiratory infection; G89.29 Other chronic pain; F17.210 Nicotine dependence, cigarettes, uncomplicated; Z88.1 Allergy status to other antibiotic agents; Z88.8 Allergy status to other drugs, medicaments and biological substances; Z87.19 Personal history of other diseases of the digestive system; Z90.89 Acquired absence of other organs; Z79.899 Other long term (current) drug therapy; Z56.0 Unemployment, unspecified; Z98.890 Other specified postprocedural states; Z20.822 Contact with and (suspected) exposure to COVID-19
CPT/HCPCS: 36415; 71046; 80053; 84484; 85025; 85651; 86140; 87804; 87811; 93005; 94640; 99285; J7512; 94760